=== PATIENT | male | born 1970 | race Caucasian/White ===

== ENCOUNTER → 2016-12-13 | Outpatient (CLI) | payer OTHER | LOC: RAD 07-19 09:30 | DX: K21.9 Gastro-esophageal reflux disease without esophagitis (principal); R10.9 Unspecified abdominal pain; R13.10 Dysphagia, unspecified; R11.2 Nausea with vomiting, unspecified; K22.4 Dyskinesia of esophagus; K44.9 Diaphragmatic hernia without obstruction or gangrene | CPT/HCPCS: 74220 ==